=== PATIENT | female | born 2000 | race Caucasian/White ===

== ENCOUNTER 2019-07-07 10:42 | Emergency (ER) | payer OTHER ==
[2019-07-07 11:18] LABS: APPEARANCE,URINE Cloudy (CLEAR); BILIRUBIN,URINE Negative (NEGATIVE); COLOR,URINE Yellow (YELLOW); GLUCOSE, URINE (UA) Negative (NEGATIVE); KETONES,URINE Negative (NEGATIVE); LEUKOCYTE ESTERASE ,URINE Moderate (NEGATIVE); NITRATE,URINE Negative (NEGATIVE); OCCULT BLOOD,URINE Moderate (NEGATIVE); PH,URINE 7.5 (5.0-8.0); PROTEIN,URINE POS 1+ mg/dL (NEGATIVE)
[2019-07-07 11:24] LABS: HCG,QUAL RESULT NEGATIVE (NEGATIVE)
[2019-07-07 11:25] LABS: BACTERIA,URINE Few /HPF (None Seen); RBC,URINE 26-50 /HPF (0-1); WBC,URINE 51-100 /HPF (0-1)
[2019-07-07 11:26] LABS: SQUAMOUS EPITHELIAL CELL,UR Rare /HPF (0-2)
[2019-07-07] MEDS ORDERED: LIDOCAINE HCL-MPF 1% 2ML VIAL ONE (11:54)
[2019-07-07] MEDS ORDERED: CEFTRIAXONE SODIUM 1 GM ONE (11:55)
== END 2019-07-07 12:19 | disposition home or self-care (01) ==
LOC: EDH 10:42
DX: N39.0 Urinary tract infection, site not specified (principal); J45.909 Unspecified asthma, uncomplicated; I10 Essential (primary) hypertension
CPT/HCPCS: 81001; 81025; 87077; 87088; 87186; 96372; 99283; J0696; J3490